=== PATIENT | female | born 1995 | race Caucasian/White ===

== ENCOUNTER 2022-07-15 20:53 | Outpatient (CLI) | payer SELFPAY | END 2022-07-15 20:54 | disposition home or self-care (01) | LOC: AMB 07-21 14:58 | PROVIDERS: Visit Provider Family Medicine | DX: O72.1 Other immediate postpartum hemorrhage (principal) | CPT/HCPCS: A0425; A0427 ==

== ENCOUNTER 2022-07-15 21:24 | Inpatient (IN) | payer SELFPAY ==
[2022-07-15] VITALS (40 sets, daily range): BP systolic 113–133; BP diastolic 59–79; PULSE 56–79; RESP 16; TEMP 37.1; O2SAT 92–100
[2022-07-15] MEDS: OXYTOCIN 30 unit/500 ML in NS 30 UNIT/500 ML BAG 300 UNIT IVPB (21:32)
[2022-07-15] MEDS: IBUPROFEN 600 MG TABLET PO (21:48)
[2022-07-15] MEDS: LIDOCAINE 1 % PF 30 ML INJECTION (22:01)
--- NOTE | 2022-07-15 22:40 | PM.OBHPLI ---
OB - H&P: HPI Labor/Induction History of Present Illness Date Seen: 07/15/22 Chief Complaint: The patient is a 26 year old 4 para 3105, status post a home this evening at 41 5/7 weeks gestation, who presents with hemorrhage. She was attended by a tile layer drainage Shi Irving and delivered via water in her home, about 5 minutes from the hospital, at approximately 8:30 a.m. this evening. The labor was reportedly uncomplicated. Immediately after the delivery in the [facility], the was placed on mom's chest and all seem to be going well. Shortly thereafter, the licensed and certified midwife noticed that the patient was bleeding more than expected. She assisted the patient to her bed, where the cord was clamped and cut. There was more vaginal bleeding. At this point, the baby needed her attention because she sounded wet and her color was becoming dusky. The licensed and certified midwife use the bulb syringe and also the DeLee suction, and when the infant still did not respond did a couple of puffs of room air via mask. This precipitated the infant to cough up some fluid and mucus. The patient then delivered the placenta, was still bleeding more than usual. She received 2 doses of Pitocin 10 units IM, and a dose of [place] Methergine 0.2 mg. She palpably had a full bladder, and the bladder was emptied using a catheter. The bleeding was still heavier than expected, and the licensed and certified midwife called EMS. She estimates the total estimated blood loss for the delivery was approximately 1000 mL. The patient is reportedly blood type B negative. Cord blood was not obtained by the licensed and certified midwife due to everything else that was happening at the time of the delivery. Infant weight was not yet done, but patient believes this was larger than any of her previous children at . She states that she was tested antenatally and was negative for diabetes. At the time of her arrival, the patient was experiencing a slow trickle from the vagina. I found her in the labor room bed with the infant suckling at the breast. Chief complaint: Maternity : 4 Para: 4 Narrative: Ruby Barron is a 26 year old female History of Present Narrative: The patient's obstetrical history is significant for a total of 4 pregnancies. Her 1st 2 deliveries were normal spontaneous vaginal deliveries of single taylor infants. Her 3rd delivery was a delivery of twins at 36 2/7 weeks gestation for IUGR of 1 of the twins. Her 4th delivery was the home delivery that occurred today. Labs Blood type: B (-) negative OB - H&P: Exam Physical Exam: Vital signs: Pulse BP Pulse Ox 57 L 114/62 98 07/15/22 22:36 07/15/22 22:36 07/15/22 22:37 Constitutional: Constitutional: no acute distress and cooperative Routine HEENT Exam: Head: Present atraumatic Eye: Present normal appearance ENT: Present mucous membranes moist Routine Neck Exam: Neck: Present full ROM Routine Chest/Breast/Axilla Exam: Comments: Normal breast appearance, normal nipples and areola bilaterally Routine Respiratory Exam: Respiratory: Present CTA bilaterally Routine Cardiovascular Exam: Cardiovascular: RRR Routine Abdominal Exam: Abdominal: Present soft; Absent tenderness Comments: Fundus firm at umbilicus Routine Exam: Comments: Second-degree perineal midline laceration noted. On bimanual exam, approximately 50 mL blood clots removed from lower uterine segment. Detailed Labor and Delivery Exam: Patient Gravid: No Comments: Routine Extremities Exam: Extremities: Present normal inspection Routine Neurological Exam: Present alert and oriented X3 OB - Problem Based A/P Additional Plan (1) hemorrhage: Status: Acute (2) Second degree perineal laceration: Status: Acute Delivery/Labor/Induction Plan Plan: other (1. Laceration repair, 2. Admit for observation, 3. Serial hemoglobin, 4. RhoGAM administration )
[2022-07-15 22:58] LABS: Basophils Percent Auto 0.1 % (0.0-3.0); Hematocrit 34.2 % (33.0-51.0); Hemoglobin* 11.6 gm/dL (12.0-16.0); Immature Granulocytes Pct Auto 0.2 %; Lymphocytes Percent Auto 5.2 % (20-44); Mean Corpuscular HGB Conc 34 gm/dL (32-36); Mean Corpuscular Hemoglobin 29 pg (26-34); Mean Corpuscular Volume 86 fL (80-100); Monocytes Percent Auto 2.8 % (0.0-11.0); Neutrophils Percent Auto 91.7 % (42.0-72.0); Platelet Count* 217 K/uL (140-440); RDW Coefficient of Variation % 12.2 % (11.5-15.5); Red Blood Count 3.99 m/uL (4.00-5.20); White Blood Count* 16.53 K/uL (4.50-11.00)
[2022-07-15 23:02] LABS: Slide Review Reflex No
--- NOTE | 2022-07-15 23:13 | W.PM.GYNPROC ---
Procedure Note Date Seen: 07/15/22 Procedure Details: Verbal consent was obtained for perineal laceration repair. The patient was placed in the dorsal lithotomy position. A total of 10 mL 1% lidocaine plain was infiltrated into the perineum at the laceration site. The perineal laceration was reapproximated in the usual, sterile, layered fashion using a 3-0 chromic suture. Following the repair, a bimanual exam was done and I removed 50 mL of blood clot from the lower uterine segment. Fundus was firm. The patient tolerated the procedure well. Sponge and needle counts were correct.
[2022-07-16 01:12] LABS: SARS PCR* Negative SARS-CoV-2 (Negative)
[2022-07-16] MEDS: LANOLIN CREAM 1 APPLIC TOPICAL (02:17)
[2022-07-16 04:47] VITALS: BP 96/63; PULSE 69; RESP 16; TEMP 36.8; O2SAT 96
[2022-07-16 07:30] VITALS: BP 122/65; PULSE 70; RESP 16; TEMP 36.7; O2SAT 98
[2022-07-16] MEDS: IBUPROFEN 600 MG TABLET PO (07:34)
[2022-07-16 07:36] LABS: Hemoglobin* 11.1 gm/dL (12.0-16.0)
[2022-07-16] MEDS: DOCUSATE SODIUM 100 MG CAPSULE PO (07:36)
--- NOTE | 2022-07-16 09:48 | P.DS_ITS ---
DS: Providers Provider Date Seen: 07/16/22 Date of admission: 07/15/22 21:24 Primary care physician: Not a Local Provider Admitting Clinician: Annmarie Mosher MD Attending Physician on discharge: Annmarie Mosher MD Date of Discharge: 07/16/22 DS: Diagnosis Discharge Diagnosis (1) hemorrhage: Status: Acute (2) Second degree perineal laceration: Status: Acute Exam Const: Vital Signs, click to edit/add: Vital Signs - 24 hr 07/15/22 21:46 07/15/22 21:47 07/15/22 21:52 Temperature Pulse Rate 61 Pulse Rate [Pulse Oximeter] Respiratory Rate Blood Pressure 133/78 Blood Pressure [Le ft Arm] Pulse Oximetry 98 99 Oxygen Delivery Me thod 07/15/22 21:56 07/15/22 21:57 07/15/22 22:02 Temperature Pulse Rate 60 Pulse Rate [Pulse Oximeter] Respiratory Rate Blood Pressure 133/79 Blood Pressure [Le ft Arm] Pulse Oximetry 98 98 Oxygen Delivery Me thod 07/15/22 22:06 07/15/22 22:07 07/15/22 22:12 Temperature Pulse Rate Pulse Rate [Pulse Oximeter] Respiratory Rate Blood Pressure 131/76 Blood Pressure [Le ft Arm] Pulse Oximetry 100 98 Oxygen Delivery Me thod 07/15/22 22:16 07/15/22 22:17 07/15/22 22:22 Temperature Pulse Rate 64 Pulse Rate [Pulse Oximeter] Respiratory Rate Blood Pressure 120/60 Blood Pressure [Le ft Arm] Pulse Oximetry 98 98 Oxygen Delivery Me thod 07/15/22 22:26 07/15/22 22:27 07/15/22 22:32 Temperature Pulse Rate 65 Pulse Rate [Pulse Oximeter] Respiratory Rate Blood Pressure 119/67 Blood Pressure [Le ft Arm] Pulse Oximetry 99 98 Oxygen Delivery Me thod 07/15/22 22:33 07/15/22 22:36 07/15/22 22:37 Temperature Pulse Rate 57 L Pulse Rate [Pulse Oximeter] Respiratory Rate Blood Pressure 114/62 Blood Pressure [Le ft Arm] Pulse Oximetry 92 98 Oxygen Delivery Me thod 07/15/22 22:42 07/15/22 21:27 07/15/22 22:46 Temperature 98.7 F Pulse Rate 58 L Pulse Rate [Pulse Oximeter] Respiratory Rate 16 Blood Pressure 122/72 Blood Pressure [Le ft Arm] Pulse Oximetry 98 Oxygen Delivery Me thod 07/15/22 22:47 07/15/22 22:52 07/15/22 22:56 Temperature Pulse Rate 60 Pulse Rate [Pulse Oximeter] Respiratory Rate Blood Pressure 113/64 Blood Pressure [Le ft Arm] Pulse Oximetry 98 98 Oxygen Delivery Me thod 07/15/22 22:57 07/15/22 23:02 07/15/22 23:06 Temperature Pulse Rate 59 L Pulse Rate [Pulse Oximeter] Respiratory Rate Blood Pressure 115/67 Blood Pressure [Le ft Arm] Pulse Oximetry 98 98 Oxygen Delivery Me thod 07/15/22 23:07 07/15/22 23:12 07/15/22 23:16 Temperature Pulse Rate 60 Pulse Rate [Pulse Oximeter] Respiratory Rate Blood Pressure 113/68 Blood Pressure [Le ft Arm] Pulse Oximetry 98 98 Oxygen Delivery Me thod 07/15/22 23:17 07/15/22 23:22 07/15/22 23:26 Temperature Pulse Rate 67 Pulse Rate [Pulse Oximeter] Respiratory Rate Blood Pressure 115/59 L Blood Pressure [Le ft Arm] Pulse Oximetry 98 99 Oxygen Delivery Me thod 07/15/22 23:27 07/15/22 23:25 07/15/22 23:15 Temperature 98.7 F Pulse Rate Pulse Rate [Pulse Oximeter] 67 60 Respiratory Rate 16 16 Blood Pressure Blood Pressure [Le ft Arm] 115/59 L 113/68 Pulse Oximetry 99 99 99 Oxygen Delivery Me thod 07/15/22 23:05 07/15/22 22:55 07/15/22 22:45 Temperature Pulse Rate Pulse Rate [Pulse Oximeter] 59 L 60 58 L Respiratory Rate 16 16 16 Blood Pressure Blood Pressure [Le ft Arm] 115/67 113/64 122/72 Pulse Oximetry 99 99 99 Oxygen Delivery Me thod 07/15/22 22:35 07/16/22 04:47 07/16/22 07:30 Temperature 98.7 F 98.2 F 98.0 F Pulse Rate Pulse Rate [Pulse Oximeter] 57 L 69 70 Respiratory Rate 16 16 16 Blood Pressure Blood Pressure [Le ft Arm] 114/62 96/63 122/65 Pulse Oximetry 99 96 98 Oxygen Delivery Me thod Room Air Room Air Documenting provider has reviewed patient's vital signs: yes Common normals: no apparent distress and oriented x3 General appearance: cooperative and comfortable Resp: Common normals: normal respiratory effort Cardio: Common normals: regular rate and regular rhythm Rate: regular rate Rhythm: regular rhythm GI: Inspection: normal to inspection : OB/external & speculum: Yes perineal/vaginal laceration Laceration: 2nd (intact) Uterus: U/1 and firm Lochia: scant Extremity: Common normals: normal to inspection and no pedal edema Neuro: Common normals: oriented x3 Psych: Common normals: affect normal OB - DS: Summary Hospital Course Hospital Course: The patient is a 26 year old G4 P 3105 who was admitted to the [facility] on 07/15/22 for acute hemorrhage following a home . She had a vaginal birthf after section of a macrosomic infant at 41 5/7 weeks gestation, and was attended by a professional soccer player, Shi Irving. She had received uterotonic medications prior to her arrival, including IM pitocin and rectal misoprostol, and total estimated blood loss for the delivery was thought to be approximately 1000 mL. She was hemodynamically stable at the time of admission. She was found to have a moderate amount of clots in the lower uterine segment, which were cleared digitally. She had a second degree midline perineal la ceration that was repaired. She is breast feeding. Her infant did not require admission. the patient has done well. Labs stable this morning. Time spent discussing smoking cessation with patient: 3 to 10 minutes Peripartum Data Infant delivery method: Vaginal Laceration description: Perineal - 2nd Degree Gender: Female Infant Discharge Plan: not admitted Status at Discharge Functional status at discharge: independent ambulation Overall status at discharge: patient is back to baseline Time Spent with Patient Time attestation: Total time spent providing and/or coordinating discharge services: Time spent: Less than 30 minutes Discharge Plan Discharge Disposition: Home, Self-Care Date of Admission: 07/15/22 21:24 Attending Provider on Discharge: Annmarie Mosher Primary Care Provider: Provider,Not a Local Condition: Stable Anticipated Discharge Date/Time: 07/16/22 10:01 Discharge Orders: Discharge Order (Routine); Ordered 07/16/22 Ordered By: Annmarie Mosher Additional Instructions: Discharge instructions were reviewed with the patient including signs and s ymptoms of infection and home going medications Nothing vaginally for 6 weeks: no tampons or intercourse Symptoms to report to doctor: * Bleeding that saturates more than one pad per hour * Passing clots larger than the size of a golf ball * Pain not relieved by prescribed medication * Fever above 100.4 degrees Fahrenheit * A foul vaginal odor * Difficulty in emotions, mood, and functions * Thoughts of hurting yourself and/or * Painful, reddened area in your breast * Any drainage, redness, or tenderness in your IV/epidural site * Severe headache that doesn't improve after taking medications * Changes in vision, including temporary loss of vision, blurred vision, and/or light sensitivity * Upper abdominal pain (usually under ribs on the right side) * Decrease in urination or painful, frequent urinating * Chest pain * Shortness of breath * Tenderness or pain with redness and/swelling in the calf(s) of your leg Follow up as directed with aboriginal education worker coordinator. [facility]. consultation services are available to all mothers and babies for the first year after delivery.? To make an appointment, please call [phone]. Activity Level: Activity as Tolerated Discharge Diet: Regular Follow Up Appointments: Provider,Not a Local [Primary Care Provider] - Forms: SuperDerivatives Info Instructions Labs Labs Laboratory Tests 07/16/22 07/16/22 07/15/22 Range/Units 07:17 00:04 21:30 WBC (4.50-11.00) K/uL RBC (4.00-5.20) m/uL Hgb 11.1 L (12.0-16.0) gm/dL Hct (33.0-51.0) % MCV (80-100) fL MCH (26-34) pg MCHC (32-36) gm/dL RDW Coeff of Christoph (11.5-15.5) % Plt Count (140-440) K/uL Neut % (Auto) (42.0-72.0) % Lymph % (Auto) (20-44) % George % (Auto) (0.0-11.0) % Eos % (Auto) (0.0-7.0) % Baso % (Auto) (0.0-3.0) % Neut # (Auto) (1.7-7.0) K/uL Lymph # (Auto) (0.90-2.90) K/uL George # (Auto) (0.00-0.90) K/UL Eos # (Auto) (0.00-0.50) K/uL Baso # (Auto) (0.00-0.30) K/uL SARS-CoV-2 (PCR) Negative SARS-CoV-2 (Negative) Blood Type B Negative Antibody Screen NEGATIVE 07/15/22 Range/Units 21:30 WBC 16.53 H (4.50-11.00) K/uL RBC 3.99 L (4.00-5.20) m/uL Hgb 11.6 L (12.0-16.0) gm/dL Hct 34.2 (33.0-51.0) % MCV 86 (80-100) fL MCH 29 (26-34) pg MCHC 34 (32-36) gm/dL RDW Coeff of Christoph 12.2 (11.5-15.5) % Plt Count 217 (140-440) K/uL Neut % (Auto) 91.7 H (42.0-72.0) % Lymph % (Auto) 5.2 L (20-44) % George % (Auto) 2.8 (0.0-11.0) % Eos % (Auto) 0.0 (0.0-7.0) % Baso % (Auto) 0.1 (0.0-3.0) % Neut # (Auto) 15.20 H (1.7-7.0) K/uL Lymph # (Auto) 0.90 (0.90-2.90) K/uL George # (Auto) 0.50 (0.00-0.90) K/UL Eos # (Auto) 0.00 (0.00-0.50) K/uL Baso # (Auto) 0.00 (0.00-0.30) K/uL SARS-CoV-2 (PCR) (Negative) Blood Type Antibody Screen
== END 2022-07-16 13:05 | disposition home or self-care (01) | DRG 769 ==
PROVIDERS: Admitting Provider Obstetrics & Gynecology; Visit Provider Obstetrics & Gynecology
DX: O72.1 Other immediate postpartum hemorrhage (principal); O70.1 Second degree perineal laceration during delivery; Z3A.41 41 weeks gestation of pregnancy
CPT/HCPCS: 36415; 85018; 85025; 85461; 86850; 86900; 86901; 87635; A9270; J2001

== ENCOUNTER 2024-12-19 10:06 | Outpatient (CLI) | payer SELFPAY | END 2024-12-19 10:07 | disposition home or self-care (01) | PROVIDERS: Visit Provider Nurse Practitioner Family | DX: L05.01 Pilonidal cyst with abscess (principal) | CPT/HCPCS: G0463 ==

== ENCOUNTER 2024-12-31 08:33 | Outpatient (CLI) | payer OTHER, SELFPAY | END 2024-12-31 08:34 | disposition home or self-care (01) | LOC: WOUND 08:33 | PROVIDERS: Visit Provider Nurse Practitioner Family | DX: L05.01 Pilonidal cyst with abscess (principal) | CPT/HCPCS: G0463 ==